=== PATIENT | female | born 1995 | race Asian ===

== ENCOUNTER 2019-12-11 17:39 | Emergency (ER) | payer SELFPAY ==
[~2019-12-11] VITALS: Ht 170.2 cm; Wt 56.7 kg
[2019-12-11 17:51] VITALS: BP 133/94
[2019-12-11] MEDS ORDERED: PHENAZOPYRIDINE 100 MG TAB PO ONE (18:10)
[2019-12-11] MEDS ORDERED: cefTRIAXone 1,000 MG in LIDOCAINE MPF 1% 2.1 ML IM ONE (18:10)
[2019-12-11] MEDS ORDERED: cefTRIAXone 1,000 MG VIAL ONE (18:16)
[2019-12-11] MEDS ORDERED: LIDOCAINE MPF 1% 5 ML ONE (18:16)
[2019-12-11 18:48] VITALS: BP 133/94
== END 2019-12-11 18:44 | disposition home or self-care (01) ==
LOC: MED 17:39
DX: N39.0 Urinary tract infection, site not specified (principal)
CPT/HCPCS: 81002; 81025; 96372; 99283; J0696; J2001